=== PATIENT | female | born 1995 | race Caucasian/White ===

== ENCOUNTER 2017-03-31 09:43 | Emergency (ER) | payer BC ==
[~2017-03-31] VITALS: Ht 167.6 cm; Wt 61.2 kg
[2017-03-31] MEDS ORDERED: ONDANSETRON 4 MG/2 ML VIAL IVP ONE (10:10)
[2017-03-31] MEDS ORDERED: KETOROLAC 15 MG/ML VIAL IVP ONE (10:10)
[2017-03-31 10:22] LABS: PLATELET COUNT, AUTOMATED 221 K/uL (150-450)
[2017-03-31] MEDS ORDERED: HYDROmorphone(ER ONLY) 1 MG/ML IVP ONE (10:55)
--- NOTE | 2017-03-31 11:48 | RADIOLOGY IMAGING REPORT ---
FACILITY: PATIENT NAME: Ana Tomlin : 1995 MR: [id number] V: [id number] EXAM DATE: ORDERING PHYSICIAN: NIXON IQBAL TECHNOLOGIST: Location: [facility] [place] Patient: Ana Tomlin : 1995 Visit/Account:[id number] Date of Sevice: 03/31/2017 ABDOMEN/PELVIS W/O CONTRAST HISTORY: Right-sided flank pain TECHNIQUE: Axial images acquired through the abdomen/pelvis. Coronal and sagittal reformatting also performed. No IV contrast administered. Dose Lowering Technique One of the following dose optimization techniques was utilized in the performance of this exam: Autom ated exposure control; adjustment of the mA and/or kV according to the patient's size; or use of an i terative reconstruction technique. Specific details can be referenced in the facility's radiology C T exam operational policy. COMPARISON: None. FINDINGS: Visualized lung bases: Negative. Hepatobiliary: Negative. Spleen: Negative. Adrenals: Negative. Pancreas: Negative. Kidneys ureters and bladder: There are numerous faint calcification seen in the renal pyramids bilate rally which can be seen with medullary sponge kidney disease. There are additional nonobstructing ca lculi seen in both renal collecting systems measuring up to 4 mm on the right and up to 4 mm on the l eft. There is a moderate right hydronephrosis and moderate right hydroureter secondary to a 3 mm tamiko culus at the right UVJ Genitalia: There is an IUD in the uterus GI: There is a an air fluid collection in the right lower quadrant that is presumably within a loop of small bowel although due to a paucity of internal fat planes, separation of bowel loops is somewh at difficult Vessels/spaces/nodes: There are small shotty mesenteric lymph nodes Bones/soft tissues: There is a small umbilical hernia containing fat Additional findings: None pertinent. IMPRESSION: Is a moderate right hydronephrosis and right hydroureter secondary to a 3 mm calculus at the right UV J There are additional nonobstructing calculi seen in both renal collecting systems in addition to carlos enrique t calcination occasions the renal pyramids bilaterally which can be seen with medullary sponge kidney disease. There is an air-fluid level in the right lower quadrant that is presumably within a loop of small bow el although due to a paucity of internal fat planes separation of the bowel loops is somewhat difficu lt for complete confirmation Report Dictated By: Marcie Alegre MD at 03/31/2017 11:28 AM Report E-Signed By: Marcie Alegre MD at 03/31/2017 11:43 AM WSN:[email or web address]
[2017-03-31] MEDS ORDERED: OXYC-865 PO (11:58)
[2017-03-31] MEDS ORDERED: ONDA4TAB PO (11:58)
--- NOTE | 2017-03-31 11:59 | ER Report ---
History and Physical Time Seen By MD: 09:53 Hx. of Stated Complaint: PT COMPLAINS OF RIGHT SIDED ABDOMINAL PAIN THAT ORIGINATES IN RIGHT FLANK AREA. VOMITING AND DIARRHEA. HPI/ROS CHIEF COMPLAINT: Sudden onset right flank pain. HISTORY OF PRESENT ILLNESS: Patient is a 21-year-old female with noncontributory past medical history presents to the emergency department with complaint of sudden onset right flank pain that radiates to the groin with associated nausea but no vomiting. She denies dysuria she denies fevers or chills. No prior similar episodes last menstrual period was one week ago and scribed is normal. REVIEW OF SYSTEMS: Respiratory: No cough, no dyspnea. Cardiovascular: No chest pain, no palpitations. Gastrointestinal: No vomiting, no abdominal pain. Musculoskeletal: No back pain. Right flank pain Allergies: Coded Allergies: Penicillins (Verified Allergy, Intermediate, HIVES, 03/31/17) cinnamon (Verified Allergy, Intermediate, RASH, 03/31/17) Home Meds Active Scripts Oxycodone Hcl/Acetaminophen (PERCOCET 5-325 MG TABLET) 1 Each Tablet, 1-2 EACH PO Q4-6H for PAIN, #30 TAB 0 Refills Prov:NIXON IQBAL MD 03/31/17 Ondansetron (ZOFRAN ODT) 4 Mg Tab.rapdis, 4 MG PO Q6H Y for NAUSEA, #20 TAB.ANDREW 0 Refills Prov:NIXON IQBAL MD 03/31/17 Past Medical/Surgical History Noncontributory Hx Substance Use Disorder: No Hx Alcohol Use: No Constitutional Vital Sign - Last 24 Hours 03/31/17 03/31/17 03/31/17 03/31/17 09:53 09:54 09:58 10:13 Temp 99.2 Pulse 77 86 85 Resp 14 B/P (MAP) 125/76 (92) 125/76 Pulse Ox 97 97 91 O2 Delivery Room Air 03/31/17 03/31/17 03/31/17 03/31/17 10:28 10:33 11:03 11:18 Pulse 54 49 55 53 Pulse Ox 98 99 92 96 03/31/17 03/31/17 03/31/17 03/31/17 11:33 11:48 11:53 12:08 Pulse 55 49 54 59 Pulse Ox 95 93 96 91 03/31/17 12:14 B/P (MAP) 115/69 (84) Physical Exam General Appearance: The patient is alert, has no immediate need for airway protection and no current signs of toxicity. Eyes: Pupils equal and round no injection. Respiratory: Chest is non tender, lungs are clear to auscultation. Cardiac: regular rate and rhythm Gastrointestinal: Abdomen is soft and non tender, no masses, bowel sounds normal. Musculoskeletal: Neck: Neck is supple and non tender. Extremities have full range of motion and are non tender. Skin: No rashes or lesions. Medical Decision Making Data Points Result Diagram: 03/31/17 1005 03/31/17 1005 Laboratory Hematology Test 03/31/17 09:50 03/31/17 10:05 Urine Color Yellow Urine Clarity Slightly-cloudy Urine pH 5.0 pH (4.8-9.5) Urine Specific [place] 1.021 Urine Protein Negative mg/dL (NEGATIVE) Urine Glucose (UA) Negative mg/dL (NEGATIVE) Urine Ketones Negative mg/dL (NEGATIVE) Urine Blood Negative (NEGATIVE) Urine Nitrite Negative (NEGATIVE) Urine Bilirubin Negative (NEGATIVE) Urine Urobilinogen Negative mg/dL (0.2-1.9) Urine Leukocyte Esterase Negative (NEGATIVE) Urine RBC <1 /HPF (0-2/HPF) Urine WBC 1 /HPF (0-5/HPF) Urine Squamous Epithelial Cells Many /LPF (</=FEW) Urine Bacteria Negative /HPF (NONE-FEW) Urine Mucus Few /HPF (NONE-FEW) Urine HCG, Qualitative Negative (NEGATIVE) Red Blood Count 4.86 M/uL (4.17-5.56) Mean Corpuscular Volume 89.4 fL (80.0-96.0) Mean Corpuscular Hemoglobin 30.7 pg (26.0-33.0) Mean Corpuscular Hemoglobin Concent 34.3 g/dL (32.0-36.0) Red Cell Distribution Width 13.2 % (11.5-14.5) Mean Platelet Volume 9.3 fL (7.2-11.1) Neutrophils (%) (Auto) 41.7 % (39.4-72.5) Lymphocytes (%) (Auto) 50.4 % (17.6-49.6) Monocytes (%) (Auto) 5.1 % (4.1-12.4) Eosinophils (%) (Auto) 2.0 % (0.4-6.7) Basophils (%) (Auto) 0.8 % (0.3-1.4) Nucleated RBC Relative Count (auto) 0.2 /100WBC Neutrophils # (Auto) 1.5 K/uL (2.0-7.4) Lymphocytes # (Auto) 1.8 K/uL (1.3-3.6) Monocytes # (Auto) 0.2 K/uL (0.3-1.0) Eosinophils # (Auto) 0.1 K/uL (0.0-0.5) Basophils # (Auto) 0.0 K/uL (0.0-0.1) Nucleated RBC Absolute Count (auto) 0.01 K/uL Sodium Level 140 mmol/L (137-145) Potassium Level 4.0 mmol/L (3.5-5.0) Chloride Level 102 mmol/L (98-107) Carbon Dioxide Level 25 mmol/L (22-31) Blood Urea Nitrogen 18 mg/dl (7-18) Creatinine 0.90 mg/dl (0.52-1.04) Glomerular Filtration Rate Calc > 60.0 Random Glucose 90 mg/dl (75-110) Calcium Level 9.5 mg/dl (8.4-10.2) Chemistry Test 03/31/17 09:50 03/31/17 10:05 Urine Color Yellow Urine Clarity Slightly-cloudy Urine pH 5.0 pH (4.8-9.5) Urine Specific [place] 1.021 Urine Protein Negative mg/dL (NEGATIVE) Urine Glucose (UA) Negative mg/dL (NEGATIVE) Urine Ketones Negative mg/dL (NEGATIVE) Urine Blood Negative (NEGATIVE) Urine Nitrite Negative (NEGATIVE) Urine Bilirubin Negative (NEGATIVE) Urine Urobilinogen Negative mg/dL (0.2-1.9) Urine Leukocyte Esterase Negative (NEGATIVE) Urine RBC <1 /HPF (0-2/HPF) Urine WBC 1 /HPF (0-5/HPF) Urine Squamous Epithelial Cells Many /LPF (</=FEW) Urine Bacteria Negative /HPF (NONE-FEW) Urine Mucus Few /HPF (NONE-FEW) Urine HCG, Qualitative Negative (NEGATIVE) White Blood Count 3.6 k/uL (4.5-11.0) Red Blood Count 4.86 M/uL (4.17-5.56) Hemoglobin 14.9 g/dL (12.0-16.0) Hematocrit 43.5 % (34.0-47.0) Mean Corpuscular Volume 89.4 fL (80.0-96.0) Mean Corpuscular Hemoglobin 30.7 pg (26.0-33.0) Mean Corpuscular Hemoglobin Concent 34.3 g/dL (32.0-36.0) Red Cell Distribution Width 13.2 % (11.5-14.5) Platelet Count 221 K/uL (150-450) Mean Platelet Volume 9.3 fL (7.2-11.1) Neutrophils (%) (Auto) 41.7 % (39.4-72.5) Lymphocytes (%) (Auto) 50.4 % (17.6-49.6) Monocytes (%) (Auto) 5.1 % (4.1-12.4) Eosinophils (%) (Auto) 2.0 % (0.4-6.7) Basophils (%) (Auto) 0.8 % (0.3-1.4) Nucleated RBC Relative Count (auto) 0.2 /100WBC Neutrophils # (Auto) 1.5 K/uL (2.0-7.4) Lymphocytes # (Auto) 1.8 K/uL (1.3-3.6) Monocytes # (Auto) 0.2 K/uL (0.3-1.0) Eosinophils # (Auto) 0.1 K/uL (0.0-0.5) Basophils # (Auto) 0.0 K/uL (0.0-0.1) Nucleated RBC Absolute Count (auto) 0.01 K/uL Glomerular Filtration Rate Calc > 60.0 Calcium Level 9.5 mg/dl (8.4-10.2) Urinalysis Test 03/31/17 09:50 Urine Color Yellow Urine Clarity Slightly-cloudy Urine pH 5.0 pH (4.8-9.5) Urine Specific [place] 1.021 Urine Protein Negative mg/dL (NEGATIVE) Urine Glucose (UA) Negative mg/dL (NEGATIVE) Urine Ketones Negative mg/dL (NEGATIVE) Urine Blood Negative (NEGATIVE) Urine Nitrite Negative (NEGATIVE) Urine Bilirubin Negative (NEGATIVE) Urine Urobilinogen Negative mg/dL (0.2-1.9) Urine Leukocyte Esterase Negative (NEGATIVE) Urine RBC <1 /HPF (0-2/HPF) Urine WBC 1 /HPF (0-5/HPF) Urine Squamous Epithelial Cells Many /LPF (</=FEW) Urine Bacteria Negative /HPF (NONE-FEW) Urine Mucus Few /HPF (NONE-FEW) Urine HCG, Qualitative Negative (NEGATIVE) EKG/Imaging Imaging FACILITY: [facility] [place] PATIENT NAME: Ana Tomlin : 1995 MR: [id number] V: [id number] EXAM DATE: ORDERING PHYSICIAN: NIXON IQBAL TECHNOLOGIST: Location: [facility] [place] Patient: Ana Tomlin : 1995 Visit/Account:[id number] Date of Sevice: 03/31/2017 ABDOMEN/PELVIS W/O CONTRAST HISTORY: Right-sided flank pain TECHNIQUE: Axial images acquired through the abdomen/pelvis. Coronal and sagittal reformatting also performed. No IV contrast administered. Dose Lowering Technique One of the following dose optimization techniques was utilized in the performance of this exam: Automated exposure control; adjustment of the mA and/ or kV according to the patient's size; or use of an iterative reconstruction technique. Specific details can be referenced in the facility's radiology CT exam operational policy. COMPARISON: None. FINDINGS: Visualized lung bases: Negative. Hepatobiliary: Negative. Spleen: Negative. Adrenals: Negative. Pancreas: Negative. Kidneys ureters and bladder: There are numerous faint calcification seen in the renal pyramids bilaterally which can be seen with medullary sponge kidney disease. There are additional nonobstructing calculi seen in both renal collecting systems measuring up to 4 mm on the right and up to 4 mm on the left. There is a moderate right hydronephrosis and moderate right hydroureter secondary to a 3 mm calculus at the right UVJ Genitalia: There is an IUD in the uterus GI: There is a an air fluid collection in the right lower quadrant that is presumably within a loop of small bowel although due to a paucity of internal fat planes, separation of bowel loops is somewhat difficult Vessels/spaces/nodes: There are small shotty mesenteric lymph nodes Bones/soft tissues: There is a small umbilical hernia containing fat Additional findings: None pertinent. IMPRESSION: Is a moderate right hydronephrosis and right hydroureter secondary to a 3 mm calculus at the right UVJ There are additional nonobstructing calculi seen in both renal collecting systems in addition to faint calcination occasions the renal pyramids bilaterally which can be seen with medullary sponge kidney disease. There is an air-fluid level in the right lower quadrant that is presumably within a loop of small bowel although due to a paucity of internal fat planes separation of the bowel loops is somewhat difficult for complete confirmation Report Dictated By: Marcie Alegre MD at 03/31/2017 11:28 AM Report E-Signed By: Marcie Alegre MD at 03/31/2017 11:43 AM WSN:[email or web address] ED Course/Re-evaluation ED Course CT scan shows 3 mm UVJ stone. Plan at this time will be continued outpatient pain medications antiemetics follow-up if symptoms do not improve in 72 hours or if they worsen at any time Decision to Disposition Date: Mar 31, 2017 Decision to Disposition Time: 11:56 Depart Departure Latest Vital Signs Vital Signs Date Time Temp Pulse Resp B/P (MAP) Pulse Ox O2 Delivery O2 Flow Rate FiO2 03/31/17 12:14 115/69 (84) 03/31/17 12:08 59 91 03/31/17 09:54 99.2 14 Room Air Impression: Primary Impression: Kidney stone Condition: Improved Disposition: HOME OR SELF-CARE New Scripts Oxycodone Hcl/Acetaminophen (PERCOCET 5-325 MG TABLET) 1 Each Tablet 1-2 EACH PO Q4-6H for PAIN, #30 TAB 0 Refills Prov: NIXON IQBAL MD 03/31/17 Ondansetron (ZOFRAN ODT) 4 Mg Tab.rapdis 4 MG PO Q6H Y for NAUSEA, #20 TAB.ANDREW 0 Refills Prov: NIXON IQBAL MD 03/31/17 Departure Forms: ER Transition Record, Medications Reconciliation, Off Work/ School Form, School or Work Release?: Work Number of days to be released: 2 Patient Portal Information Patient Instructions: Kidney Stones (ED) NIXON IQBAL MD Mar 31, 2017 11:59
[2017-03-31 12:14] VITALS: BP 115/69
== END 2017-03-31 12:18 | disposition home or self-care (01) ==
LOC: ER 09:55
DX: N20.0 Calculus of kidney (principal)
CPT/HCPCS: 74176; 81001; 81025; 85025; 96374; 96375; 99284; J1170; J1885; J2405; 82310; 82374; 82435; 82565; 82947; 84132; 84295; 84520

== ENCOUNTER 2017-04-09 17:53 | Observation (INO) | payer BC ==
[~2017-04-09] VITALS: Ht 167.6 cm; Wt 66.0 kg
[~2017-04-09 17:53] MED LIST: ONDA4TAB PO; OXYC-865 PO
[2017-04-09] MEDS ORDERED: NS(*) 0.9% 1000 ML BAG 1,000 ML IV ONE (18:44)
--- NOTE | 2017-04-09 18:44 | ER Report ---
History and Physical Time Seen By MD: 18:43 Hx. of Stated Complaint: severe pain RLQ radiating to back; dx with kidney stone in RLQ area 3mm last week, percocet not helping pain HPI/ROS CHIEF COMPLAINT: abdominal pain. HISTORY OF PRESENT ILLNESS: This is a 21 year old female. She was seen last week with a kidney stone. 3mm stone at right UVJ. Pain did seem to resolve for a couple of days, but back now and very severe. Normal bowels, and no changes with urination noted. No fevers or chills. Pain in RLQ with radiation to back. REVIEW OF SYSTEMS: Constitutional: No fever or chills. Eyes: No vision changes. ENT: No sore throat. No congestion. Cardiovascular: No chest pain. Respiratory: No shortness of breath. Gastrointestinal: as above. Genitourinary: as above. Musculoskeletal: No extremity pain. Skin: No rashes. Neurological: No weakness. No headache. Allergies: Coded Allergies: Penicillins (Verified Allergy, Intermediate, HIVES, 03/31/17) cinnamon (Verified Allergy, Intermediate, RASH, 03/31/17) Home Meds Active Scripts Oxycodone Hcl/Acetaminophen (PERCOCET 5-325 MG TABLET) 1 Each Tablet, 1-2 EACH PO Q4-6H for PAIN, #30 TAB 0 Refills Prov:NIXON IQBAL MD 03/31/17 Ondansetron (ZOFRAN ODT) 4 Mg Tab.rapdis, 4 MG PO Q6H Y for NAUSEA, #20 TAB.ANDREW 0 Refills Prov:NIXON IQBAL MD 03/31/17 Reviewed Nurses Notes: Yes Hx Substance Use Disorder: No Hx Alcohol Use: No Constitutional Vital Sign - Last 24 Hours 04/09/17 04/09/17 04/09/17 04/09/17 17:53 18:08 18:23 18:32 Temp 99.4 Pulse 141 147 ??? 73 Resp 18 B/P (MAP) 121/79 Pulse Ox 92 94 94 O2 Delivery Room Air 04/09/17 04/09/17 04/09/17 04/09/17 18:38 18:53 18:59 19:08 Pulse 142 142 ??? B/P (MAP) 79/--- (48) Pulse Ox 93 94 204/09/17 04/09/17 04/09/17 19:09 19:20 19:23 19:38 Pulse 70 80 ? Resp 16 Pulse Ox 98 90 04/09/17 04/09/17 04/09/17 04/09/17 19:43 19:52 19:58 20:00 Pulse ? O2 Flow Rate 2.0 10.0 04/09/17 04/09/17 04/09/17 04/09/17 20:07 20:13 20:24 20:28 Pulse 72 77 B/P (MAP) ???/??? (1665) 126/86 (99) Pulse Ox 100 89 04/09/17 04/09/17 20:30 20:43 Pulse 57 B/P (MAP) 126/85 (99) Pulse Ox 100 Intake and Output 04/09/17 04/09/17 04/10/17 15:00 23:00 07:00 Intake Total 1000 ml Balance 1000 ml Physical Exam General Appearance: The patient is alert. Acute distress due to pain. Eyes: Pupils are equal, round. No pallor, injection or icterus. ENT: Mucous membranes are moist. Neck: Supple and non tender. Respiratory: Lungs are clear to auscultation. Cardiovascular: Regular rate and rhythm. No murmurs, gallops or rubs. Normal capillary refill. Gastrointestinal: Abdomen is soft, but tender in right lower. Nondistended. Normal active bowel sounds. Neurological: Alert and oriented x3. Skin: Warm and dry. Musculoskeletal: No musculoskeletal pain. DIFFERENTIAL DIAGNOSIS: After history and physical exam, differential diagnosis was considered for abdominal pain including but not limited to appendicitis, kidney stones, gastroenteritis and urinary tract infection. Medical Decision Making Data Points Result Diagram: 04/09/17 1900 04/09/17 1900 Laboratory Hematology Test 04/09/17 18:18 04/09/17 19:00 Urine Color Yellow Urine Clarity Clear Urine pH 6.0 pH (4.8-9.5) Urine Specific [place] 1.028 Urine Protein Negative mg/dL (NEGATIVE) Urine Glucose (UA) Negative mg/dL (NEGATIVE) Urine Ketones Negative mg/dL (NEGATIVE) Urine Blood Small (NEGATIVE) Urine Nitrite Negative (NEGATIVE) Urine Bilirubin Negative (NEGATIVE) Urine Urobilinogen 2.0 mg/dL (0.2-1.9) Urine Leukocyte Esterase Negative (NEGATIVE) Urine RBC 11 /HPF (0-2/HPF) Urine WBC 2 /HPF (0-5/HPF) Urine Squamous Epithelial Cells Many /LPF (</=FEW) Urine Bacteria Few /HPF (NONE-FEW) Urine Mucus Few /HPF (NONE-FEW) Red Blood Count 4.49 M/uL (4.17-5.56) Mean Corpuscular Volume 89.6 fL (80.0-96.0) Mean Corpuscular Hemoglobin 31.3 pg (26.0-33.0) Mean Corpuscular Hemoglobin Concent 34.9 g/dL (32.0-36.0) Red Cell Distribution Width 13.1 % (11.5-14.5) Mean Platelet Volume 9.3 fL (7.2-11.1) Neutrophils (%) (Auto) 71.2 % (39.4-72.5) Lymphocytes (%) (Auto) 23.9 % (17.6-49.6) Monocytes (%) (Auto) 4.3 % (4.1-12.4) Eosinophils (%) (Auto) 0.4 % (0.4-6.7) Basophils (%) (Auto) 0.2 % (0.3-1.4) Nucleated RBC Relative Count (auto) 0.1 /100WBC Neutrophils # (Auto) 5.5 K/uL (2.0-7.4) Lymphocytes # (Auto) 1.8 K/uL (1.3-3.6) Monocytes # (Auto) 0.3 K/uL (0.3-1.0) Eosinophils # (Auto) 0.0 K/uL (0.0-0.5) Basophils # (Auto) 0.0 K/uL (0.0-0.1) Nucleated RBC Absolute Count (auto) 0.01 K/uL Sodium Level 138 mmol/L (137-145) Potassium Level 3.7 mmol/L (3.5-5.0) Chloride Level 101 mmol/L (98-107) Carbon Dioxide Level 25 mmol/L (22-31) Blood Urea Nitrogen 22 mg/dl (7-18) Creatinine 0.90 mg/dl (0.52-1.04) Glomerular Filtration Rate Calc > 60.0 Random Glucose 97 mg/dl (75-110) Calcium Level 9.2 mg/dl (8.4-10.2) Total Bilirubin 2.5 mg/dl (0.2-1.3) Aspartate Amino Transf (AST/SGOT) 24 U/L (0-35) Alanine Aminotransferase (ALT/SGPT) 28 U/L (0-56) Alkaline Phosphatase 71 U/L (0-126) C-Reactive Protein < 0.5 mg/dl (<1.0) Total Protein 7.6 gm/dl (6.3-8.2) Albumin 4.3 g/dl (3.5-5.0) Amylase Level 65 U/L (0-110) Lipase 50 U/L (23-300) Chemistry Test 04/09/17 18:18 04/09/17 19:00 Urine Color Yellow Urine Clarity Clear Urine pH 6.0 pH (4.8-9.5) Urine Specific [place] 1.028 Urine Protein Negative mg/dL (NEGATIVE) Urine Glucose (UA) Negative mg/dL (NEGATIVE) Urine Ketones Negative mg/dL (NEGATIVE) Urine Blood Small (NEGATIVE) Urine Nitrite Negative (NEGATIVE) Urine Bilirubin Negative (NEGATIVE) Urine Urobilinogen 2.0 mg/dL (0.2-1.9) Urine Leukocyte Esterase Negative (NEGATIVE) Urine RBC 11 /HPF (0-2/HPF) Urine WBC 2 /HPF (0-5/HPF) Urine Squamous Epithelial Cells Many /LPF (</=FEW) Urine Bacteria Few /HPF (NONE-FEW) Urine Mucus Few /HPF (NONE-FEW) White Blood Count 7.7 k/uL (4.5-11.0) Red Blood Count 4.49 M/uL (4.17-5.56) Hemoglobin 14.1 g/dL (12.0-16.0) Hematocrit 40.3 % (34.0-47.0) Mean Corpuscular Volume 89.6 fL (80.0-96.0) Mean Corpuscular Hemoglobin 31.3 pg (26.0-33.0) Mean Corpuscular Hemoglobin Concent 34.9 g/dL (32.0-36.0) Red Cell Distribution Width 13.1 % (11.5-14.5) Platelet Count 212 K/uL (150-450) Mean Platelet Volume 9.3 fL (7.2-11.1) Neutrophils (%) (Auto) 71.2 % (39.4-72.5) Lymphocytes (%) (Auto) 23.9 % (17.6-49.6) Monocytes (%) (Auto) 4.3 % (4.1-12.4) Eosinophils (%) (Auto) 0.4 % (0.4-6.7) Basophils (%) (Auto) 0.2 % (0.3-1.4) Nucleated RBC Relative Count (auto) 0.1 /100WBC Neutrophils # (Auto) 5.5 K/uL (2.0-7.4) Lymphocytes # (Auto) 1.8 K/uL (1.3-3.6) Monocytes # (Auto) 0.3 K/uL (0.3-1.0) Eosinophils # (Auto) 0.0 K/uL (0.0-0.5) Basophils # (Auto) 0.0 K/uL (0.0-0.1) Nucleated RBC Absolute Count (auto) 0.01 K/uL Glomerular Filtration Rate Calc > 60.0 Calcium Level 9.2 mg/dl (8.4-10.2) Total Bilirubin 2.5 mg/dl (0.2-1.3) Aspartate Amino Transf (AST/SGOT) 24 U/L (0-35) Alanine Aminotransferase (ALT/SGPT) 28 U/L (0-56) Alkaline Phosphatase 71 U/L (0-126) C-Reactive Protein < 0.5 mg/dl (<1.0) Total Protein 7.6 gm/dl (6.3-8.2) Albumin 4.3 g/dl (3.5-5.0) Amylase Level 65 U/L (0-110) Lipase 50 U/L (23-300) Urinalysis Test 04/09/17 18:18 Urine Color Yellow Urine Clarity Clear Urine pH 6.0 pH (4.8-9.5) Urine Specific [place] 1.028 Urine Protein Negative mg/dL (NEGATIVE) Urine Glucose (UA) Negative mg/dL (NEGATIVE) Urine Ketones Negative mg/dL (NEGATIVE) Urine Blood Small (NEGATIVE) Urine Nitrite Negative (NEGATIVE) Urine Bilirubin Negative (NEGATIVE) Urine Urobilinogen 2.0 mg/dL (0.2-1.9) Urine Leukocyte Esterase Negative (NEGATIVE) Urine RBC 11 /HPF (0-2/HPF) Urine WBC 2 /HPF (0-5/HPF) Urine Squamous Epithelial Cells Many /LPF (</=FEW) Urine Bacteria Few /HPF (NONE-FEW) Urine Mucus Few /HPF (NONE-FEW) EKG/Imaging Imaging CT abdomen and pelvis with IV contrast Indication: Right lower abdominal pain. History of kidney stone. Comparison: 03/31/2017.. Technique: Axial CT images were obtained through the abdomen and pelvis during injection of nonionic iodinated intravenous contrast. Reformatted coronal and sagittal images were also obtained. One of the following dose optimization techniques was utilized in the performance of this exam: Automated exposure control; adjustment of the mA and/ or kV according to the patient's size; or use of an iterative reconstruction technique. Specific details can be referenced in the facility's radiology CT exam operational policy. Contrast: 75 ml of Isovue-370 IV contrast. Findings: Lower lung hyde: Limited views lower lung field are unremarkable. Liver: No focal parenchymal abnormality of the liver. Biliary: Gallbladder appears unremarkable as well as the intra and extra hepatic biliary system. Pancreas: Normal appearance. Spleen: Normal appearance. Adrenal glands: Unremarkable. Kidneys / retroperitoneum: Persistent moderate left hydronephrosis and hydroureter down to the UVJ where there is a 3 mm stone, unchanged. There are several other small stones in the collecting system right kidney and at least one of the left kidney which appears stable. No left hydronephrosis. No discrete renal lesions. Function of the left kidney is mildly decreased when compared to left. Bowel / peritoneum / mesenteries: The colon shows no focal normality. The appendix is not definitely visualized. Small bowel shows no focal normality or obstruction. Right lower quadrant does show a mildly prominent small bowel loops without dilatation or focal abnormality/wall thickening. The appearance is mildly improved is most likely normal small bowel in this region. The right lower quadrant shows no inflammation, fluid fluid collections. The abdomen and pelvis show no free air, free fluid, fluid collections or areas of inflammation. Lymph node assessment: No pathologic adenopathy identified. Pelvic structures: IUD appears to be in good position. Pelvic structures visualized within normal limits. Vessels: No significant atherosclerotic calcifications seen throughout a nonaneurysmal abdominal aorta and branches. Musculoskeletal / Body wall: No acute or aggressive osseous abnormality. IMPRESSION: 1. Continued moderate right hydronephrosis and hydroureter due to 3 mm stone at the UVJ which appears stable. Bilateral stones are again seen. No left hydronephrosis. The right kidney does show mild decreased function compared to left most likely due to the obstructing stone. 2. The appendix is not definitely visualized. No discrete secondary signs of appendicitis. The right lower quadrant does show mildly prominent bowel loops which appear to be mildly improved from previous examination without obstruction or focal abnormality. This mostly represents normal small bowel. Report Dictated By: Greg Muse at 04/09/2017 8:05 PM ED Course/Re-evaluation Clinical Indication for ER IV: Hydration, IV Access ED Course Patient treated with Morphine 4mg IV and Zofran 4mg IV. These helped symptoms initially. CT scan obtained and showed the stone at the right UVJ, unchanged from previous. Dilaudid was given later when pain returned. Called and discussed with Dr. Christian. Patient was admitted to inpatient and Dr. Christian with see her in the morning. Decision to Disposition Date: Apr 09, 2017 Decision to Disposition Time: 20:35 Depart Departure Latest Vital Signs Vital Signs Date Time Temp Pulse Resp B/P (MAP) Pulse Ox O2 Delivery O2 Flow Rate FiO2 04/09/17 20:43 57 100 04/09/17 20:30 126/85 (99) 04/09/17 20:00 10.0 04/09/17 19:20 16 04/09/17 18:32 99.4 Room Air Impression: Primary Impression: Kidney stone Condition: Condition Unchanged [facility] Apr 09, 2017 18:44
[2017-04-09] MEDS ORDERED: ONDANSETRON 4 MG/2 ML VIAL IVP ONE (18:45)
[2017-04-09] MEDS ORDERED: MORPHINE 4 MG/ML SDV IVP ONE (18:45)
[2017-04-09] MEDS ORDERED: NS(*) 0.9% 10 ML VIAL 20 ML ONE (18:53)
[2017-04-09] MEDS ORDERED: IOPAMIDOL 76% 75 ML INFUS BTL 75 ML ONE (18:54)
[2017-04-09 19:20] LABS: PLATELET COUNT, AUTOMATED 212 K/uL (150-450)
[2017-04-09] MEDS ORDERED: HYDROmorphone(ER ONLY) 1 MG/ML IVP ONE (20:15)
--- NOTE | 2017-04-09 20:23 | RADIOLOGY IMAGING REPORT ---
FACILITY: [facility] PATIENT NAME: Ana Tomlin : 1995 MR: [id number] V: [id number] EXAM DATE: ORDERING PHYSICIAN: EULOGIO TANNER TECHNOLOGIST: Location: [facility] - [place] Patient: Ana Tomlin : 1995 Visit/Account:[id number] Date of Sevice: 04/09/2017 CT abdomen and pelvis with IV contrast Indication: Right lower abdominal pain. History of kidney stone. Comparison: 03/31/2017.. Technique: Axial CT images were obtained through the abdomen and pelvis during injection of nonioni c iodinated intravenous contrast. Reformatted coronal and sagittal images were also obtained. One of the following dose optimization techniques was utilized in the performance of this exam: Autom ated exposure control; adjustment of the mA and/or kV according to the patient's size; or use of an i terative reconstruction technique. Specific details can be referenced in the facility's radiology C T exam operational policy. Contrast: 75 ml of Isovue-370 IV contrast. Findings: Lower lung hyde: Limited views lower lung field are unremarkable. Liver: No focal parenchymal abnormality of the liver. Biliary: Gallbladder appears unremarkable as well as the intra and extra hepatic biliary system. Pancreas: Normal appearance. Spleen: Normal appearance. Adrenal glands: Unremarkable. Kidneys / retroperitoneum: Persistent moderate left hydronephrosis and hydroureter down to the UVJ wh ere there is a 3 mm stone, unchanged. There are several other small stones in the collecting system r ight kidney and at least one of the left kidney which appears stable. No left hydronephrosis. No disc rete renal lesions. Function of the left kidney is mildly decreased when compared to left. Bowel / peritoneum / mesenteries: The colon shows no focal normality. The appendix is not definitely visualized. Small bowel shows no focal normality or obstruction. Right lower quadrant does show a mil dly prominent small bowel loops without dilatation or focal abnormality/wall thickening. The appearan ce is mildly improved is most likely normal small bowel in this region. The right lower quadrant show s no inflammation, fluid fluid collections. The abdomen and pelvis show no free air, free fluid, fluid collections or areas of inflammation. Lymph node assessment: No pathologic adenopathy identified. Pelvic structures: IUD appears to be in good position. Pelvic structures visualized within normal limits. Vessels: No significant atherosclerotic calcifications seen throughout a nonaneurysmal abdominal aort a and branches. Musculoskeletal / Body wall: No acute or aggressive osseous abnormality. IMPRESSION: 1. Continued moderate right hydronephrosis and hydroureter due to 3 mm stone at the UVJ which appears stable. Bilateral stones are again seen. No left hydronephrosis. The right kidney does show mild dec reased function compared to left most likely due to the obstructing stone. 2. The appendix is not definitely visualized. No discrete secondary signs of appendicitis. The right lower quadrant does show mildly prominent bowel loops which appear to be mildly improved from previou s examination without obstruction or focal abnormality. This mostly represents normal small bowel. Report Dictated By: Greg Muse at 04/09/2017 8:05 PM Report E-Signed By: Greg Muse at 04/09/2017 8:19 PM WSN:[id number]
[2017-04-09 21:15] VITALS: BP 125/75
[2017-04-09] MEDS ORDERED: KCL/D1/2NS 20 MEQ 1000 ML 1,000 ML IV SCH (21:30)
[2017-04-09] MEDS ORDERED: HYDROmorphone PCA 6 MG/30 ML IV PRN (21:35)
[2017-04-09] MEDS ORDERED: NALOXONE HCL 0.4 MG/ML VIAL IVP PRN (21:35)
[2017-04-09] MEDS ORDERED: ONDANSETRON 4 MG/2 ML VIAL IVP PRN (21:35)
[2017-04-09 23:25] VITALS: BP 119/89
[2017-04-10] VITALS (11 sets, daily range): BP systolic 97–114; BP diastolic 56–79; Ht 167.6 cm; Wt 66.0 kg
[2017-04-10] MEDS ORDERED: FAMOTIDINE 20 MG TAB PO ONE (11:00)
[2017-04-10] MEDS ORDERED: NORMOSOL R SOLN(*) 1000 ML BAG 1,000 ML IV ONE (11:00)
[2017-04-10] MEDS ORDERED: ONDANSETRON 4 MG/2 ML VIAL ONE (12:20)
[2017-04-10] MEDS ORDERED: LIDOCAINE MPF 1% 5 ML VIAL ONE (12:20)
[2017-04-10] MEDS ORDERED: PROPOFOL EMUL(*) 10MG/ML 20 ML 20 ML ONE (12:20)
[2017-04-10] MEDS ORDERED: DEXAMETHASONE SOD 4 MG/ML VIAL ONE (12:20)
[2017-04-10] MEDS ORDERED: METOCLOPRAMIDE 10 MG/2 ML SDV ONE (12:20)
[2017-04-10] MEDS ORDERED: LEVOFLOXACIN/D5W*500 MG/100 ML 100 ML IVPB ONE (12:30)
[2017-04-10] MEDS ORDERED: fentaNYL CITR 100 MCG/2 ML AMP ONE (13:48)
[2017-04-10] MEDS ORDERED: IOPAMIDOL-200 50 ML VIAL IS ONE (14:31)
[2017-04-10] MEDS ORDERED: KETOROLAC 30 MG/ML VIAL ONE (14:34)
[2017-04-10] MEDS ORDERED: ONDANSETRON 4 MG/2 ML VIAL IVP PRN (15:20)
[2017-04-10] MEDS ORDERED: ZOLPIDEM TARTRATE 5 MG TAB PO PRN (15:20)
[2017-04-10] MEDS ORDERED: FLUSH 10 ML SYR IVP PRN (15:20)
[2017-04-10] MEDS ORDERED: ACETAMIN/CODEINE #3 300-30 MG PO PRN (15:20)
[2017-04-10] MEDS ORDERED: LR(*) 1000 ML BAG 1,000 ML IV PRN (15:20)
[2017-04-10] MEDS ORDERED: HYDR-4309 PO (16:16)
[2017-04-10] MEDS ORDERED: FAMO20TA28 PO (16:16)
[2017-04-10] MEDS ORDERED: SULF-198 PO (16:17)
[2017-04-10] MEDS ORDERED: IBUP600T22 PO (16:17)
[2017-04-10] MEDS ORDERED: DOCUSATE SODIUM 100 MG CAP PO SCH (21:00)
[2017-04-10] MEDS ORDERED: FAMOTIDINE 20 MG TAB PO SCH (21:00)
--- NOTE | 2017-04-10 21:09 | OPERATIVE REPORT 1 ---
EVENT DATE: April 10, 2017 SURGEON: Himanshu Christian MD ANESTHESIOLOGIST: Luis Nair MD ANESTHESIA: General anesthetic. PREOPERATIVE DIAGNOSIS Right ureterolithiasis with associated ureterorenal colic, nausea, and vomiting. POSTOPERATIVE DIAGNOSIS Right ureterolithiasis with associated ureterorenal colic, nausea, and vomiting. PROCEDURES PERFORMED 1. Cystourethroscopy 2. Extraction of right ureteral stone. 3. Right ureteral pyelogram. DESCRIPTION OF PROCEDURE Under general anesthetic, the patient was prepped and draped in the extended lithotomy position. The 21 panendoscope was admitted through the urethra into the bladder. No stones were visible in the bladder. The helical extractor was passed up the right ureter to above the stone where it was evident that the stone was located approximately one inch cephalad to the right ureteral orifice with bruising evident in that spot. The stone was extracted without any difficulty on the first pass. Passing a 10 cone-tip catheter up the right ureter ascended and descended without any difficulty. A ureteral pyelogram showed no other obstructive lesions. No filling defects. The bladder was drained. The patient tolerated the procedure satisfactorily and returned to the recovery room in satisfactory condition. This is a 21-year-old white female complaining of right ureterolithiasis going on since the March. She has been unable to pass the stone spontaneously and returns to the Emergency Room this last p.m. for symptomatic treatment and relief and possible treatment. Options were discussed with the patient and her pretreatment. The patient opted for further evaluation and therapy. See operative note for details of the procedure and extraction. The patient will be ready for discharge home when alert and functional. She is to force fluids, 12 glasses of water per day. Activities are as tolerated. She is to continue to strain her urine. She was sent home with strainers. Plan followup probably the March for reevaluation and therapy of her bilateral renal lithiasis. The patient may opt to follow up this coming Thursday, the March, for further discussion and plans as to her bilateral renal lithiasis problem and her treatment options. The patient will be discharged home on Bactrim, Pepcid, Motrin, and Walnut therapy. The patient was given my number to contact me if there are any problems. MTDD
--- NOTE | 2017-04-11 01:06 | RADIOLOGY IMAGING REPORT ---
FACILITY: [facility] - [place] PATIENT NAME: Ana Tomlin : 1995 MR: [id number] V: [id number] EXAM DATE: ORDERING PHYSICIAN: MAGDA LARRY TECHNOLOGIST: Location: [facility] - [place] Patient: Ana Tomlin : 1995 Visit/Account:[id number] Date of Sevice: 04/10/2017 OR retrograde study: Indication: Hematuria. Right ureteral calculus. Technique: 6 images were submitted. Fluoroscopy time was 4 seconds. Comparison: CT scan dated 04/09/2017. Findings: Images document opacification of the right ureter and intrarenal collecting structures. No filling defects are clearly identified. There are no signs of obstruction or focal narrowing. An IUD is present in the pelvic midline. Refer to the operative report for full details. Impression: As above. Report Dictated By: Armani Hahn MD at 04/11/2017 12:38 AM Report E-Signed By: Armani Hahn MD at 04/11/2017 1:02 AM WSN:[id number]
[2017-04-11] MEDS ORDERED: LEVOFLOXACIN 500 MG TAB PO SCH (10:00)
== END 2017-04-10 18:35 | disposition home or self-care (01) ==
LOC: ER 18:29 → INTOOBSV 20:44 → MED 20:44
DX: N20.0 Calculus of kidney (principal)
CPT/HCPCS: 52320; 74177; 74420; 81001; 81025; 82150; 83690; 85025; 86140; 87088; 96361; 96374; 96375; 99284; C1769; C1894; G0378; J1100; J1170; J1885; J1956; J2001; J2270; J2405; J2704; J2765; J3010; J3480; J7030; Q9966; Q9967; 82040; 82247; 82310; 82374; 82435; 82565; 82947; 84075; 84132; 84155; 84295; 84450; 84460; 84520

== ENCOUNTER → 2017-04-16 | Outpatient (REF) | payer BC ==
[2017-04-10 09:57] VITALS: BMI 23.4
[~2017-04-16] MED LIST changes: +CEPH500T7 PO; +FAMO20TA28 PO; +HYDR-4309 PO; +IBUP600T22 PO; +SULF-198 PO
== END ==
LOC: ZZSENDIN 11:00
DX: N20.1 Calculus of ureter (principal)
CPT/HCPCS: 82365; 88300

== ENCOUNTER 2017-04-20 00:36 | Day surgery (SDC) | payer BC ==
[2017-04-10 09:57] VITALS: Ht 167.6 cm; Wt 67.6 kg
[~2017-04-20] VITALS: Ht 167.6 cm; Wt 67.6 kg
[~2017-04-20 00:36] MED LIST changes: -CEPH500T7 PO
[2017-04-20] MEDS ORDERED: IOPAMIDOL-200 50 ML VIAL IS ONE (06:39)
[2017-04-20 07:35] VITALS: BP 112/66
[2017-04-20] MEDS ORDERED: DEXAMETHASONE SOD PHOS 10MG/ML ONE (08:13)
[2017-04-20] MEDS ORDERED: LIDOCAINE MPF 1% 5 ML VIAL ONE (08:13)
[2017-04-20] MEDS ORDERED: ONDANSETRON 4 MG/2 ML VIAL ONE (08:13)
[2017-04-20] MEDS ORDERED: fentaNYL CITR 100 MCG/2 ML AMP ONE (08:13)
[2017-04-20] MEDS ORDERED: PROPOFOL EMUL(*) 10MG/ML 20 ML 20 ML ONE (08:13)
[2017-04-20] MEDS ORDERED: NORMOSOL R SOLN(*) 1000 ML BAG 1,000 ML IV PRN (08:15)
[2017-04-20] MEDS ORDERED: MIDAZOLAM 2 MG/2 ML VIAL IVP PRN (08:15)
[2017-04-20] MEDS ORDERED: LEVOFLOXACIN/D5W*500 MG/100 ML 100 ML IVPB ONE (08:15)
[2017-04-20] MEDS ORDERED: LIDOCAINE/SOD BICARB 8.4% SYR ID ONE (08:15)
[2017-04-20] MEDS ORDERED: MIDAZOLAM 2 MG/2 ML VIAL ONE (09:18)
[2017-04-20] MEDS ORDERED: PHENYLEPHRINE/NS/PF 0.4MG/10ML ONE (09:36)
[2017-04-20] MEDS ORDERED: ePHEDrine 25 MG/5 ML DISP.SYR IVP ONE (09:36)
--- NOTE | 2017-04-20 09:49 | RADIOLOGY IMAGING REPORT ---
FACILITY: [facility] [place] PATIENT NAME: Ana Tomlin : 1995 MR: [id number] V: [id number] EXAM DATE: ORDERING PHYSICIAN: MAGDA LARRY TECHNOLOGIST: Location: [facility] Patient: Ana Tomlin : 1995 Visit/Account:[id number] Date of Sevice: 04/16/2017 TOMOGRAPHY AND KUB W/CASSETTE HISTORY: Renal calculi COMPARISON: CT 04/09/2017 FINDINGS: KUB and tomographic images were obtained at 6, 7 and 8 cm. Prior 3 mm distal right ureteral calculus is not seen. Right pelvic phlebolith noted. IUD noted. Prio r tiny right renal calculi not clearly visualized. IMPRESSION: 1. Prior 3 mm distal right ureteral calculus not seen. 2. Prior tiny right renal calculi not clearly seen. Report Dictated By: Jesús Valencia MD at 04/20/2017 8:55 AM Report E-Signed By: Jesús Valencia MD at 04/20/2017 9:44 AM WSN:[id number]
[2017-04-20] MEDS ORDERED: WATER FOR IRRIG,STERILE 3000ML IR ONE (10:04)
[2017-04-20] MEDS ORDERED: CEPH500T7 PO (11:52)
[2017-04-20] MEDS ORDERED: PROMETHAZINE 25 MG/ML 1 ML AMP ONE (11:59)
[2017-04-20 12:19] VITALS: BP 109/74
[2017-04-20 12:30] VITALS: BP 111/75
[2017-04-20 12:45] VITALS: BP 107/70
[2017-04-20 13:30] VITALS: BP 110/82
[2017-04-20 13:31] VITALS: BP 107/72
--- NOTE | 2017-04-21 04:21 | OPERATIVE REPORT 1 ---
EVENT DATE: April 20, 2017 SURGEON: Himanshu Christian MD ANESTHESIOLOGIST: Stephen Lisa MD ANESTHESIA: General. PREOPERATIVE DIAGNOSIS Bilateral renolithiasis. POSTOPERATIVE DIAGNOSIS Bilateral renolithiasis. PROCEDURE PERFORMED 1. Cystourethroscopy. 2. Bilateral external stent ureteral placement and removal. 3. Bilateral extracorporeal shock wave lithotripsies. Four stones were treated in the right kidney, and two stones were treated in the left kidney. Bilateral external stent removal. DESCRIPTION OF PROCEDURE Under general anesthetic, the patient was prepped and draped in the extended lithotomy position. The 21 panendoscope admitted through the urethra into the bladder. No stones were visible in the bladder. Bilateral external stets, 5 whistle tips, were placed up both collecting systems. After localization, the stones in the right kidney, which involved almost every calyx, were treated with a total of 2500 shocks progressing from low to high kV fairly slowly. Contrast was used for localization of the calyceal structures on the right as well as on the left. The patient was positioned for left extracorporeal shockwave lithotripsy. The stones in the inferior pole area and mid pole area of the left kidney were treated with a total of 2000 shocks, progressing from low to high kV fairly slowly. At the conclusion of the procedure, the external stents were removed. The bladder was irrigated free of blood. The bladder was drained. The panendoscope was removed. The patient tolerated the procedure satisfactorily and returned to the recovery room in satisfactory condition. INDICATION FOR PROCEDURE This is a 21-year-old white female complaining of bilateral renolithiasis. She is status postop right ureteral stone extraction approximately one week ago. She has done well following that procedure. Options were discussed with the patient pre-treatment, and she was agreeable to evaluation and therapy. See operative note for details. DISCHARGE INSTRUCTIONS Patient will be ready for discharge home when alert and functional, to force fluids, 2 liters per day. Activities are as tolerated. She is to strain all of her urine. She was sent home with strainers. She is to percuss both kidneys frequently to facilitate passage of stone particles. Plan follow up on May 05, 2017. She has a stone analysis pending. I have explained to the patient the probability of medullary sponge kidney, and she has been instructed carefully on forcing of fluids, 16 glasses of water per day. Her was present during the interview and the consult. The patient will be continued on her usual medications, Keflex, Pepcid, Motrin, Iaeger therapy in addition to her usual medications. QUINTIND
== END 2017-04-20 12:19 | disposition home or self-care (01) ==
LOC: OR 00:36
DX: N20.0 Calculus of kidney (principal)
CPT/HCPCS: 50590; 76100; 81025; C1758; C1769; J1100; J1956; J2001; J2250; J2370; J2405; J2550; J2704; J3010; Q9966